=== PATIENT | male | born 1995 | race African-American/Black ===

== ENCOUNTER 2017-07-12 17:47 | Emergency (ER) | payer SELFPAY ==
[~2017-07-12] VITALS: Ht 177.8 cm; Wt 81.6 kg
[~2017-07-12 17:47] MED LIST: NKM
[2017-07-12 17:51] VITALS: BP 139/76
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
[2017-07-12] MEDS ORDERED: IBUPROFEN600 MG ORAL (18:30)
[2017-07-12 18:58] VITALS: BP 139/76
--- NOTE | 2017-07-13 11:13 | Diagnostic Imaging Report ---
Indication: Pain Findings: 3 views of the right elbow were obtained. No acute fractures, malalignment, erosions or periostitis are identified. Bone mineralization is within normal limits. Soft tissues are unremarkable. Impression: Negative examination of the elbow.
--- NOTE | 2017-07-13 11:13 | Diagnostic Imaging Report ---
Indication: Pain Findings: 2 views of the right forearm were obtained. No acute fractures, malalignment, erosions or periostitis are identified. . Soft tissues are unremarkable. Impression: Negative for acute injury
== END 2017-07-12 18:59 | disposition home or self-care (01) ==
LOC: EDBD 17:47 → EMR 18:51
DX: S50.311A Abrasion of right elbow, initial encounter (principal); V09.1XXA Pedestrian injured in unspecified nontraffic accident, initial encounter; Y92.481 Parking lot as the place of occurrence of the external cause
CPT/HCPCS: 99284

== ENCOUNTER 2019-08-12 00:18 | Emergency (ER) | payer SELFPAY ==
[~2019-08-12] VITALS: Ht 177.8 cm; Wt 74.8 kg
[~2019-08-12 00:18] MED LIST changes: +IBUPROFEN600 MG ORAL
[2019-08-12 01:13] LABS: EOSINOPHILS % (AUTO) 6.1 % (0.0-3.0); HEMATOCRIT 50.7 % (42.0-52.0); HEMOGLOBIN 17.2 G/DL (14.2-18.0); LYMPHOCYTES % (AUTO) 32.5 % (20.0-45.0); MEAN CORPUSCULAR VOLUME 84 FL (80-99); MONOCYTES % (AUTO) 6.4 % (1.0-10.0); PLATELET COUNT 330 K/UL (150-450); RED BLOOD COUNT 6.02 M/UL (4.70-6.10); RED CELL DISTRIBUTION WIDTH 11.8 % (11.6-14.8); WHITE BLOOD COUNT 7.7 K/UL (4.8-10.8)
[2019-08-12 01:14] LABS: APPEARANCE,URINE CLEAR; BILIRUBIN, URINE NEGATIVE (NEGATIVE); GLUCOSE, URINE (UA) NEGATIVE (NEGATIVE); KETONES,URINE NEGATIVE (NEGATIVE); LEUKOCYTE ESTERASE ,URINE 1+ (NEGATIVE); NITRITE,URINE POSITIVE (NEGATIVE); PH,URINE 5 (4.5-8.0); PROTEIN,URINE NEGATIVE (NEGATIVE); UROBILINOGEN,URINE NORMAL MG/DL (0.0-1.0)
[2019-08-12] MEDS ORDERED: Lidocaine 2% Visc 15ml soln ORAL ONE (01:15)
[2019-08-12] MEDS ORDERED: Mylanta II UD 30ml ORAL ONE (01:15)
[2019-08-12 01:18] LABS: ANION GAP 7 mmol/L (5-15); BLOOD UREA NITROGEN 12 mg/dL (7-18); CALCIUM 9.1 MG/DL (8.5-10.1); CARBON DIOXIDE 30 MMOL/L (21-32); CHLORIDE 105 MMOL/L (98-107); CREATININE 0.9 MG/DL (0.55-1.30); POTASSIUM 3.8 MMOL/L (3.5-5.1); SODIUM 142 MMOL/L (136-145)
[2019-08-12 01:19] LABS: COLOR,URINE YELLOW
[2019-08-12 01:24] LABS: ALANINE AMINOTRANSFERASE 42 U/L (12-78); ALBUMIN 4.2 G/DL (3.4-5.0); ALBUMIN/GLOBULIN RATIO 1.1 (1.0-2.7); ALKALINE PHOSPHATASE 77 U/L (46-116); ASPARTATE AMINO TRANSFERASE 22 U/L (15-37); BILIRUBIN,TOTAL 0.3 MG/DL (0.2-1.0)
[2019-08-12 01:26] VITALS: BP 142/82
--- NOTE | 2019-08-12 01:27 | Emergency Room Report ---
History of Present Illness General Chief Complaint: Abdominal Pain Source: Patient Present Illness HPI 23-year-old male who presents to emergency room for epigastric abdominal pain and bloating sensation, new onset 5 days ago. Patient has been using over-the- counter Tums and liquid Maalox with no improvement. Patient has no known abdominal surgeries, no vomiting. Noted some mild nausea and loose stools yesterday. Patient has no recent travel. Patient denies any recent large amounts of fatty food eaten. Allergies: Coded Allergies: No Known Allergies (Unverified , 07/12/17) Patient History Past Medical History: none Past Surgical History: none Nursing Documentation-[facility] Past Medical History: No Stated History Review of Systems Constitutional: Denies: chills, fever Respiratory: Denies: cough, shortness of breath Cardiovascular: Denies: chest pain, palpitations Gastrointestinal: Reports: abdominal pain, diarrhea, nausea; Denies: vomiting Genitourinary: Denies: hematuria, pain Musculoskeletal: Denies: joint swelling Skin: Denies: rash, lesions Neurological: Denies: headache, dizziness Physical Exam Vital Signs Date Time Temp Pulse Resp B/P (MAP) Pulse Ox O2 Delivery O2 Flow Rate FiO2 08/12/19 00:31 98.2 75 18 142/82 (102) 96 Room Air Sp02 EP Interpretation: reviewed General Appearance: well appearing, no apparent distress, non-toxic Head: normocephalic, atraumatic Eyes: bilateral eye normal inspection ENT: hearing grossly normal, EOM grossly intact, moist mucus membranes Neck: supple Respiratory: lungs clear, normal breath sounds, no respiratory distress, speaking full sentences Cardiovascular #1: regular rate, rhythm, normal capillary refill Cardiovascular #2: 2+ radial (R), 2+ radial (L) Gastrointestinal: soft, no mass, non-distended, no guarding, no hernia, no rebound, tenderness - Epigastric Rectal: deferred Musculoskeletal: moves extm spontaneously, no lower extremity edema Neurologic: grossly normal Psychiatric: mood/affect normal Skin: warm/dry, normal turgor Medical Decision Making Diagnostic Impression: Primary Impression: UTI (urinary tract infection) Additional Impression: Abdominal pain ER Course 23-year-old male who presents to emergency room for epigastric abdominal pain and bloating sensation, new onset 5 days ago. Patient has been using over-the- counter Tums and liquid Maalox with no improvement. Patient has no known abdominal surgeries, no vomiting. Noted some mild nausea and loose stools yesterday. Patient has no recent travel. Patient denies any recent large amounts of fatty food eaten. Mild epigastric tenderness on exam Differential includes gastroenteritis, gastritis, urinary tract infection, pancreatitis, liver dysfunction, pyelonephritis, kidney stone, ED course in order to have positive urinary tract infection will prescribe antibiotics. Patient recommended to have close follow-up with primary care doctor Laboratory Tests Test 08/12/19 00:40 White Blood Count 7.7 K/UL (4.8-10.8) Red Blood Count 6.02 M/UL (4.70-6.10) Hemoglobin 17.2 G/DL (14.2-18.0) Hematocrit 50.7 % (42.0-52.0) Mean Corpuscular Volume 84 FL (80-99) Mean Corpuscular Hemoglobin 28.6 PG (27.0-31.0) Mean Corpuscular Hemoglobin Concent 34.0 G/DL (32.0-36.0) Red Cell Distribution Width 11.8 % (11.6-14.8) Platelet Count 330 K/UL (150-450) Mean Platelet Volume 7.5 FL (6.5-10.1) Neutrophils (%) (Auto) 54.0 % (45.0-75.0) Lymphocytes (%) (Auto) 32.5 % (20.0-45.0) Monocytes (%) (Auto) 6.4 % (1.0-10.0) Eosinophils (%) (Auto) 6.1 % (0.0-3.0) H Basophils (%) (Auto) 1.0 % (0.0-2.0) Urine Color Yellow Urine Appearance Clear Urine pH 5 (4.5-8.0) Urine Specific [place] 1.030 (1.005-1.035) Urine Protein Negative (NEGATIVE) Urine Glucose (UA) Negative (NEGATIVE) Urine Ketones Negative (NEGATIVE) Urine Blood 1+ (NEGATIVE) H Urine Nitrite Positive (NEGATIVE) H Urine Bilirubin Negative (NEGATIVE) Urine Urobilinogen Normal MG/DL (0.0-1.0) Urine Leukocyte Esterase 1+ (NEGATIVE) H Urine RBC 2-4 /HPF (0 - 0) H Urine WBC 10-15 /HPF (0 - 0) H Urine Squamous Epithelial Cells Occasional /LPF Urine Calcium Oxalate Crystals Few /LPF (NONE) Urine Bacteria Moderate /HPF (NONE) H Sodium Level 142 MMOL/L (136-145) Potassium Level 3.8 MMOL/L (3.5-5.1) Chloride Level 105 MMOL/L (98-107) Carbon Dioxide Level 30 MMOL/L (21-32) Anion Gap 7 mmol/L (5-15) Blood Urea Nitrogen 12 mg/dL (7-18) Creatinine 0.9 MG/DL (0.55-1.30) Estimate Glomerular Filtration Rate > 60 mL/min (>60) Glucose Level 105 MG/DL (74-106) Calcium Level 9.1 MG/DL (8.5-10.1) Total Bilirubin 0.3 MG/DL (0.2-1.0) Aspartate Amino Transferase (AST) 22 U/L (15-37) Alanine Aminotransferase (ALT) 42 U/L (12-78) Alkaline Phosphatase 77 U/L (46-116) Total Protein 8.1 G/DL (6.4-8.2) Albumin 4.2 G/DL (3.4-5.0) Globulin 3.9 g/dL Albumin/Globulin Ratio 1.1 (1.0-2.7) Lipase 125 U/L (73-393) Lab Results Impression Positive urine nitrites and WBCs, leukocytes esterase Last Vital Signs Date Time Temp Pulse Resp B/P (MAP) Pulse Ox O2 Delivery O2 Flow Rate FiO2 08/12/19 00:31 98.2 75 18 142/82 (102) 96 Room Air Disposition: HOME, SELF-CARE Condition: Stable Scripts Ondansetron* (ZOFRAN*) 4 Mg Tablet 4 MG ORAL Q6H PRN for Nausea & Vomiting for 7 Days, #10 TAB Prov: Toby Monson M.D. 08/12/19 Trimethoprim/Sulfamethoxazole 160/800* (BACTRIM DS TABLET*) 1 Each Tablet 1 TAB ORAL Q12H, #14 TAB 0 Refills Prov: Toby Monson M.D. 08/12/19 Referrals: NOT CHOSEN KATHIE/,REFERRING (PCP) [facility] Patient Instructions: Abdominal Pain, Adult, Urinary Tract Infection Additional Instructions: Please take antibiotics as prescribed for the full course. Follow-up with primary care doctor in 2 to 3 days for reevaluation. Return to emergency room if you develop fever, nausea, vomiting or unable to tolerate medications. Toby Monson M.D. Aug 12, 2019 01:27
[2019-08-12] MEDS ORDERED: ZOFRAN4 M3 ORAL (02:30)
[2019-08-12] MEDS ORDERED: BACTRIM DS TAB1 EAC1 ORAL (02:30)
[2019-08-12 02:33] VITALS: BP 132/71
[2019-08-12 02:36] VITALS: BP 132/71
[2019-08-13] MEDS ORDERED: CARAFATE1 G1 ORAL (05:10)
[2019-08-13] MEDS ORDERED: FAMOTIDINE20 MG ORAL (05:10)
== END 2019-08-12 02:36 | disposition home or self-care (01) ==
LOC: EDBD → EMR 00:35
DX: N39.0 Urinary tract infection, site not specified (principal); R10.13 Epigastric pain
CPT/HCPCS: 36415; 80053; 81003; 83690; 85025; 87086; 96374; 96375; 99284; J2405; S0028

== ENCOUNTER 2019-08-13 01:11 | Emergency (ER) | payer SELFPAY ==
[~2019-08-13] VITALS: Ht 177.8 cm; Wt 74.8 kg
[~2019-08-13 01:11] MED LIST changes: +BACTRIM DS TAB1 EAC1 ORAL; +ZOFRAN4 M3 ORAL
[2019-08-13 01:20] VITALS: BP 149/91
--- NOTE | 2019-08-13 01:22 | NUR ---
ED Nurse Note: patient walked into ED c/o upper abdominal pain, patient was seen here last night for the same reason however returned due to worsening of symptoms, patient describes his pain as a dull and aching pain. rates his pain a 10/10 pain, patient denies any nausea, vomiting, and diarrhea. patient is alert and oriented x4, ambulatory with a steady gait, VSS
[2019-08-13] MEDS ORDERED: Sucralfate 1gm tab ORAL ONE (01:45)
[2019-08-13] MEDS ORDERED: Omnipaque-300 100ml vial INJ PRN (01:45)
[2019-08-13 02:37] LABS: EOSINOPHILS % (AUTO) 5.4 % (0.0-3.0); HEMATOCRIT 49.2 % (42.0-52.0); HEMOGLOBIN 16.8 G/DL (14.2-18.0); LYMPHOCYTES % (AUTO) 29.1 % (20.0-45.0); MEAN CORPUSCULAR VOLUME 84 FL (80-99); MONOCYTES % (AUTO) 6.1 % (1.0-10.0); NEUTROPHILS % (AUTO) 58.4 % (45.0-75.0); PLATELET COUNT 317 K/UL (150-450); RED BLOOD COUNT 5.89 M/UL (4.70-6.10); RED CELL DISTRIBUTION WIDTH 11.8 % (11.6-14.8); WHITE BLOOD COUNT 9.2 K/UL (4.8-10.8)
--- NOTE | 2019-08-13 02:51 | Emergency Room Report ---
History of Present Illness General Chief Complaint: Abdominal Pain Source: Patient Present Illness HPI 24-year-old male presenting with epigastric abdominal pain now radiating diffusely over his entire abdomen. Of note patient was seen yesterday with similar complaints and found to have a urinary tract infection was prescribed antibiotics. Patient started his antibiotics recommended. She states he has no vomiting and no diarrhea, but he states nausea. Epigastric pain is sharp in nature knifelike, 10 out of 10, constant, and unchanged with medications prescribed. Of note patient has no prior abdominal surgeries. Allergies: Coded Allergies: No Known Allergies (Unverified , 07/12/17) Patient History Past Medical History: none Past Surgical History: none Nursing Documentation-[facility] Past Medical History: No Stated History Review of Systems Constitutional: Denies: chills, fever Respiratory: Denies: cough, shortness of breath Cardiovascular: Denies: chest pain, palpitations Gastrointestinal: Reports: abdominal pain, nausea; Denies: diarrhea, vomiting Genitourinary: Denies: hematuria, pain Musculoskeletal: Denies: joint swelling Skin: Denies: rash, lesions Neurological: Denies: headache, dizziness Physical Exam Vital Signs Date Time Temp Pulse Resp B/P (MAP) Pulse Ox O2 Delivery O2 Flow Rate FiO2 08/13/19 01:15 97.7 72 18 149/91 (110) 95 Room Air Sp02 EP Interpretation: reviewed General Appearance: well appearing, no apparent distress, non-toxic Head: normocephalic, atraumatic Eyes: bilateral eye normal inspection ENT: hearing grossly normal, EOM grossly intact, moist mucus membranes Neck: supple Respiratory: lungs clear, normal breath sounds, no respiratory distress, speaking full sentences Cardiovascular #1: regular rate, rhythm, normal capillary refill Cardiovascular #2: 2+ radial (R), 2+ radial (L) Gastrointestinal: soft, no mass, no organomegaly, no peritonitis, no bruit, non -distended, no guarding, no hernia, no rebound, tenderness - Epigastric Rectal: deferred Musculoskeletal: moves extm spontaneously, no lower extremity edema Neurologic: grossly normal Psychiatric: mood/affect normal Skin: warm/dry, normal turgor Medical Decision Making Diagnostic Impression: Primary Impression: Epigastric abdominal pain ER Course 24-year-old male presenting with epigastric abdominal pain, similar symptoms yesterday found to have urinary tract infection. Patient compliant with medications. Found to have epigastric tenderness on exam with no rebound or guarding. Differential includes gastric ulcer, esophageal rupture, peritonitis, intraperitoneal injury, abscess, appendicitis with referred pain, kidney stones , diverticulosis gallbladder pain, choledocholithiasis CT/MRI/US Diagnostic Results CT/MRI/US Diagnostic Results : Impression Patient : TIM FERGUSON Referring Physician: Toby Monson M.D. ID Number: [id number] Service Date: 08/13/19 : 09/07/1994 Report Date: 08/13/19 Gender: M Accession No.: [id number] Location: [facility] Procedure: CT Abdomen Pelvis w/Contrast EXAM: CT Abdomen and Pelvis With Intravenous Contrast CLINICAL HISTORY: ABD PAIN TECHNIQUE: Axial computed tomography images of the abdomen and pelvis with intravenous contrast. CTDI is 16.9 mGy and DLP is 997.1 mGy-cm. One or more of the following dose reduction techniques were used: automated exposure control, adjustment of the mA and/or kV according to patient size, use of iterative reconstruction technique. COMPARISON: No relevant prior studies available. FINDINGS: Lung bases: Unremarkable. No mass. No consolidation. Mediastinum: Small hiatal hernia. ABDOMEN: Liver: Unremarkable. No mass. Gallbladder and bile ducts: Unremarkable. No calcified stones. No ductal dilation. Pancreas: Unremarkable. No mass. No ductal dilation. Spleen: Unremarkable. No splenomegaly. Adrenals: Unremarkable. No mass. Kidneys and ureters: Unremarkable. No solid mass. No hydronephrosis. Stomach and bowel: Unremarkable. No obstruction. No mucosal thickening. PELVIS: Appendix: No findings to suggest acute appendicitis. Bladder: Unremarkable. No mass. Reproductive: Unremarkable as visualized. ABDOMEN and PELVIS: Intraperitoneal space: Unremarkable. No free air. No significant fluid collection. Bones/joints: No acute fracture. No dislocation. Soft tissues: Unremarkable. Vasculature: Unremarkable. No abdominal aortic aneurysm. Lymph nodes: Unremarkable. No enlarged lymph nodes. IMPRESSION: No acute findings in the abdomen or pelvis. Dictated By: Teresa Pandya M.D. Electronically Signed By: Teresa Pandya M.D. Signed Date/Time 08/13/19 0453 CC: Toby Monson M.D. Reevaluation Time: 05:09 Last Vital Signs Date Time Temp Pulse Resp B/P (MAP) Pulse Ox O2 Delivery O2 Flow Rate FiO2 08/13/19 01:20 72 18 Room Air 08/13/19 01:20 97.7 149/91 95 Status: improved Reevaluation Impression CT performed noted to be within normal limits. Patient's epigastric abdominal pain likely secondary to gastritis versus gastric ulcer. Patient recommended to follow-up with primary care doctor soon as possible. Also recommended to see GI specialist as soon as possible. Patient given warning signs and when to return to emergency room. Disposition: HOME, SELF-CARE Condition: Stable Scripts Famotidine* (Pepcid 20mg tablet*) 20 Mg Tablet 20 MG ORAL TWICE A DAY, #60 TAB 0 Refills Prov: Toby Monson M.D. 08/13/19 Sucralfate* (CARAFATE*) 1 Gm Tablet 1 GM ORAL FOUR TIMES A DAY for 10 Days, #40 TAB Prov: Toby Monson M.D. 08/13/19 Referrals: NOT CHOSEN [facility]/,REFERRING (PCP) [facility] Patient Instructions: Abdominal Pain, Adult Additional Instructions: Please take medications as prescribed and return to emergency room if symptoms not improving. Toby Monson M.D. Aug 13, 2019 02:51
[2019-08-13 02:57] LABS: ANION GAP 8 mmol/L (5-15); BLOOD UREA NITROGEN 11 mg/dL (7-18); CALCIUM 8.4 MG/DL (8.5-10.1); CARBON DIOXIDE 30 MMOL/L (21-32); CHLORIDE 104 MMOL/L (98-107); CREATININE 1.1 MG/DL (0.55-1.30); POTASSIUM 3.5 MMOL/L (3.5-5.1); SODIUM 141 MMOL/L (136-145)
[2019-08-13 03:01] LABS: ALANINE AMINOTRANSFERASE 34 U/L (12-78); ALBUMIN 3.7 G/DL (3.4-5.0); ALBUMIN/GLOBULIN RATIO 1.1 (1.0-2.7); ALKALINE PHOSPHATASE 71 U/L (46-116); ASPARTATE AMINO TRANSFERASE 15 U/L (15-37); BILIRUBIN,TOTAL 0.3 MG/DL (0.2-1.0)
--- NOTE | 2019-08-13 03:45 | NUR ---
ED Nurse Note: Pt resting in bed with eyes closed, non-labored breathing, no signs of distress. Pt awaiting CT scan. Will continue to monitor
--- NOTE | 2019-08-13 04:53 | Diagnostic Imaging Report ---
EXAM: CT Abdomen and Pelvis With Intravenous Contrast CLINICAL HISTORY: ABD PAIN TECHNIQUE: Axial computed tomography images of the abdomen and pelvis with intravenous contrast. CTDI is 16.9 mGy and DLP is 997.1 mGy-cm. One or more of the following dose reduction techniques were used: automated exposure control, adjustment of the mA and/or kV according to patient size, use of iterative reconstruction technique. COMPARISON: No relevant prior studies available. FINDINGS: Lung bases: Unremarkable. No mass. No consolidation. Mediastinum: Small hiatal hernia. ABDOMEN: Liver: Unremarkable. No mass. Gallbladder and bile ducts: Unremarkable. No calcified stones. No ductal dilation. Pancreas: Unremarkable. No mass. No ductal dilation. Spleen: Unremarkable. No splenomegaly. Adrenals: Unremarkable. No mass. Kidneys and ureters: Unremarkable. No solid mass. No hydronephrosis. Stomach and bowel: Unremarkable. No obstruction. No mucosal thickening. PELVIS: Appendix: No findings to suggest acute appendicitis. Bladder: Unremarkable. No mass. Reproductive: Unremarkable as visualized. ABDOMEN and PELVIS: Intraperitoneal space: Unremarkable. No free air. No significant fluid collection. Bones/joints: No acute fracture. No dislocation. Soft tissues: Unremarkable. Vasculature: Unremarkable. No abdominal aortic aneurysm. Lymph nodes: Unremarkable. No enlarged lymph nodes. IMPRESSION: No acute findings in the abdomen or pelvis.
[2019-08-13] MEDS ORDERED: CARAFATE1 G1 ORAL (05:10)
[2019-08-13] MEDS ORDERED: FAMOTIDINE20 MG ORAL (05:10)
[2019-08-13 05:30] VITALS: BP 149/91
--- NOTE | 2019-08-13 05:30 | NUR ---
ER DISCHARGE NOTE: Patient is cleared to be discharged per ERMD, pt is aox4, on room air, with stable vital signs. pt was given dc and prescription instructions, pt was able to verbalize understanding, pt id band and iv site removed without complications. pt is able to ambulate with steady gait. pt took all belongings.
== END 2019-08-13 05:30 | disposition home or self-care (01) ==
LOC: EDBD 01:11 → EMR 01:40
DX: R10.9 Unspecified abdominal pain (principal)
CPT/HCPCS: 36415; 74177; 80053; 83690; 85025; 96374; 96375; 99284; J2405; Q9967; S0028

== ENCOUNTER 2020-02-26 20:00 | Emergency (ER) | payer OTHER ==
[~2020-02-26] VITALS: Ht 177.8 cm; Wt 74.8 kg
[~2020-02-26 20:00] MED LIST changes: +CARAFATE1 G1 ORAL; +CEPHALEXIN500 MG ORAL; +FAMOTIDINE20 MG ORAL; +ZITHROMAX250 MG ORAL
[2020-02-26 20:15] VITALS: BP 134/82
--- NOTE | 2020-02-26 20:15 | NUR ---
ED Nurse Note: Pt walked into ED for c/o throat pain and headache x1 day. Pt reports pain with swallowing and difficulty eating. Pt is aaox4, breathing is normal and unlabored. No cough or SOB.
--- NOTE | 2020-02-26 20:25 | Emergency Room Report ---
History of Present Illness General Chief Complaint: Sore Throat Source: Patient Present Illness HPI Patient presents with complaints of sore throat Reports that he smoked heavier than usual yesterday and feels discomfort to that region Pain is worse with swallowing Denies any fevers denies any chest pain denies any vomiting Patient reports that he also had some personal experiences recently with in the family and felt that he was somewhat dehydrated Allergies: Coded Allergies: No Known Allergies (Unverified , 05/18/19) COVID-19 Screening Contact w/high risk pt: No Recent Travel to affected area: No Experienced COVID-19 symptoms?: No COVID-19 Testing performed APARTMENT LEASING AGENT: No Patient History Past Medical History: see triage record Reviewed Nursing Documentation: PMH: Agreed; PSxH: Agreed Nursing Documentation-PMH Past Medical History: No Stated History Review of Systems All Other Systems: negative except mentioned in HPI Physical Exam Vital Signs Date Time Temp Pulse Resp B/P (MAP) Pulse Ox O2 Delivery O2 Flow Rate FiO2 02/26/20 20:02 99.0 93 16 134/82 (99) 97 Room Air Sp02 EP Interpretation: reviewed, normal General Appearance: well appearing, no apparent distress Head: normocephalic, atraumatic Eyes: bilateral eye PERRL, bilateral eye EOMI ENT: hearing grossly normal, TMs + canals normal, uvula midline, pharyngeal erythema Neck: full range of motion, supple, no meningismus, no bony tend Respiratory: lungs clear, normal breath sounds, no rhonchi, no respiratory distress, no retraction, no accessory muscle use Cardiovascular #1: normal peripheral pulses, regular rate, rhythm, no edema, no gallop, no JVD, no murmur Gastrointestinal: normal bowel sounds, non tender, soft, no mass, no organomegaly, non-distended, no guarding, no hernia, no pulsatile mass, no rebound Musculoskeletal: normal inspection Neurologic: motor strength/tone normal, overedge sewer III-XII nml as tested, oriented x3 , sensory intact, responsive Psychiatric: mood/affect normal Skin: no rash Lymphatic: normal inspection, no adenopathy Medical Decision Making Diagnostic Impression: Primary Impression: Pharyngitis ER Course Multiple differentials including but not limited to pharyngitis viral versus bacterial, retropharyngeal abscess peritonsillar abscess entertained, patient's voice is normal There is some signs of pharyngeal erythema and likely pharyngitis Patient was given injection of Toradol and requires close outpatient follow-up Last Vital Signs Date Time Temp Pulse Resp B/P (MAP) Pulse Ox O2 Delivery O2 Flow Rate FiO2 02/26/20 20:15 99.0 93 16 134/82 97 Room Air Status: improved Disposition: HOME, SELF-CARE Condition: Improved Referrals: [facility],REFERR[facility] (PCP) Additional Instructions: Patient is provided with the discharge instructions notified to follow up with primary doctor in the next 2-3 days otherwise return to the er with any worsening symptoms. Please note that this report is being documented using [employer] technology. This can lead to erroneous entry secondary to incorrect interpretation by the dictating instrument. Nurys Smith DO Feb 26, 2020 20:25
[2020-02-26] MEDS ORDERED: AMOXICILLIN500 MG ORAL (20:26)
[2020-02-26] MEDS ORDERED: Ketorolac 60mg Inj IM ONE (20:30)
[2020-02-26 20:40] VITALS: BP 128/80
--- NOTE | 2020-02-26 20:40 | NUR ---
ER DISCHARGE NOTE: Patient is cleared to be discharged per ERMD, pt is aox4, on room air, with stable vital signs. pt was given dc and prescription instructions, pt was able to verbalize understanding, pt id band removed. pt is able to ambulate with steady gait. pt took all belongings.
[2020-02-27] MEDS ORDERED: IBUPROFEN600 M1 ORAL (22:19)
== END 2020-02-26 20:40 | disposition home or self-care (01) ==
LOC: MERGE 20:22 → EMR 20:22
DX: J02.9 Acute pharyngitis, unspecified (principal)
CPT/HCPCS: 96372; Z7502; 99283

== ENCOUNTER 2020-02-27 21:11 | Emergency (ER) | payer OTHER ==
[~2020-02-27] VITALS: Ht 177.8 cm; Wt 74.8 kg
[~2020-02-27 21:11] MED LIST changes: +AMOXICILLIN500 MG ORAL
[2020-02-27] MEDS ORDERED: IBUPROFEN600 M1 ORAL (22:19)
[2020-02-27 22:30] VITALS: BP 133/81
[2020-02-27 22:40] VITALS: BP 128/83
--- NOTE | 2020-02-28 00:32 | Emergency Room Report ---
History of Present Illness General Chief Complaint: General Complaint Source: Patient Present Illness HPI 24-year-old male presents complaining of throat pain. Started 2 days ago. Throbbing, 9 out of 10, nonradiating. Unable to swallow food or liquid. Denies fevers or chills. Denies cough. Was seen in ED yesterday. Was prescribed antibiotics. States he is taking the medications but without significant symptom relief. Denies sick contacts or recent travel. No other aggravating relieving factors. Denies any other associated symptoms Allergies: Coded Allergies: No Known Allergies (Unverified , 05/18/19) COVID-19 Screening Contact w/high risk pt: No Recent Travel to affected area: No Experienced COVID-19 symptoms?: No COVID-19 Testing performed SENIOR SOLUTIONS ENGINEER: No Patient History Past Medical History: none Past Surgical History: none Pertinent Family History: none Social History: Denies: smoking, alcohol use, drug use Immunizations: UTD Reviewed Nursing Documentation: PMH: Agreed; PSxH: Agreed Nursing Documentation-PMH Past Medical History: No Stated History Review of Systems All Other Systems: negative except mentioned in HPI Physical Exam Vital Signs Date Time Temp Pulse Resp B/P (MAP) Pulse Ox O2 Delivery O2 Flow Rate FiO2 02/27/20 21:24 100.0 93 18 128/83 (98) 99 Room Air Sp02 EP Interpretation: reviewed, normal General Appearance: no apparent distress, alert, GCS 15, non-toxic Head: normocephalic, atraumatic Eyes: bilateral eye normal inspection, bilateral eye PERRL ENT: hearing grossly normal, normal pharynx, no angioedema, normal voice, uvula midline, pharyngeal erythema, tonsillar exudate Neck: full range of motion, supple, no meningismus, supple/symm/no masses Respiratory: normal inspection Cardiovascular #1: normal inspection Gastrointestinal: normal inspection Rectal: deferred Genitourinary: no CVA tenderness Musculoskeletal: normal inspection Neurologic: alert, motor strength/tone normal, oriented x3, sensory intact, responsive, speech normal Psychiatric: normal inspection Skin: no rash Lymphatic: normal inspection Medical Decision Making Diagnostic Impression: Primary Impression: Pharyngitis Qualified Codes: J02.9 - Acute pharyngitis, unspecified ER Course Hospital Course 24-year-old male presents to ED complaining of sore throat Differential diagnoses include: URI, pharyngitis, otitis media Clinical course Patient placed on stretcher. After initial history, physical exam reveals a young male in no acute distress. Bilateral TM unremarkable. There is pharyngeal erythema w/ tonsillar exudates. I discussed findings with patient. Patient currently already on antibiotics. Patient would benefit from Decadron injection for the inflammation. Patient agreed. Safe for discharge for close outpatient follow-up. Patient encouraged to complete antibiotics as prescribed. I will provide referrals Diagnosis - pharyngitis Stable and discharged home with prescriptions for Motrin. Continue antibiotics as prescribed. Instructed to followup with PMD. return to ED if symptoms recur or worsen Last Vital Signs Date Time Temp Pulse Resp B/P (MAP) Pulse Ox O2 Delivery O2 Flow Rate FiO2 02/27/20 22:40 100.0 18 128/83 99 Room Air 02/27/20 22:30 83 Status: improved Disposition: HOME, SELF-CARE Condition: Stable Scripts Ibuprofen* (MOTRIN*) 600 Mg Tablet 600 MG ORAL Q8H PRN for FOR PAIN, #30 TAB 0 Refills Prov: Erlin Fenton MD 02/27/20 Referrals: [facility],REFERRING (PCP) [facility] Patient Instructions: Pharyngitis, [id number] Erlin Fenton MD Feb 28, 2020 00:32
== END 2020-02-27 22:40 | disposition home or self-care (01) ==
LOC: MERGE 21:40 → EMR 21:40
DX: J02.9 Acute pharyngitis, unspecified (principal)
CPT/HCPCS: 96372; J1100; Z7502; 99283

== ENCOUNTER 2020-09-17 11:58 | Emergency (ER) | payer MEDICAID, OTHER ==
[~2020-09-17] VITALS: Ht 177.8 cm; Wt 75.7 kg
[~2020-09-17 11:58] MED LIST changes: +IBUPROFEN600 M1 ORAL
[2020-09-17 12:25] VITALS: BP 129/62
--- NOTE | 2020-09-17 12:25 | NUR ---
ED Nurse Note: Patient walked in to Er from home c/o redness, tearing and crusts on the left eyelid x 2 days
[2020-09-17] MEDS ORDERED: OFLOXACIN10 ML OP (12:31)
--- NOTE | 2020-09-17 12:31 | Emergency Room Report ---
History of Present Illness General Chief Complaint: Eye Problems Source: Patient Present Illness HPI 25-year-old male with no signal past medical history here complaining of left thigh pain that started spinning upon waking up. Patient reports that he has turned the corner of his eyes and he pressed on it he noticed more pain inside the eye and yellow discharge. Denies photophobia, blurred vision, cough and congestion. Denies fever and chills. Denies any trauma to the eyes. No signs of global trauma noted, no entrapment noted. Allergies: Coded Allergies: No Known Allergies (Unverified , 07/12/17) COVID-19 Screening Contact w/high risk pt: No Experienced COVID-19 symptoms?: No COVID-19 Testing performed SR. STRATEGIC SOURCING MANAGER: Yes - 09/01 COVID-19 Screening: Negative COVID-19 COVID-19 Testing Source: Blood Patient History Past Medical History: see triage record Past Surgical History: none Pertinent Family History: none Immunizations: UTD Reviewed Nursing Documentation: PMH: Agreed; PSxH: Agreed Nursing Documentation-PMH Past Medical History: No Stated History Review of Systems All Other Systems: negative except mentioned in HPI Physical Exam Vital Signs Date Time Temp Pulse Resp B/P (MAP) Pulse Ox O2 Delivery O2 Flow Rate FiO2 09/17/20 12:15 98.6 102 16 129/62 (84) 96 Room Air Sp02 EP Interpretation: reviewed, normal General Appearance: no apparent distress, alert, GCS 15, non-toxic Head: normocephalic, atraumatic Eyes: left eye other - Conjunctive are injected ENT: hearing grossly normal, normal pharynx, no angioedema, normal voice Neck: full range of motion, supple/symm/no masses Respiratory: chest non-tender, lungs clear, normal breath sounds, speaking full sentences Cardiovascular #1: regular rate, rhythm, no edema Gastrointestinal: non tender Musculoskeletal: back normal Neurologic: alert, motor strength/tone normal, oriented x3, sensory intact, responsive, speech normal Psychiatric: judgement/insight normal Skin: no rash Lymphatic: no adenopathy Medical Decision Making PA Attestation All my diagnosis and treatment plans were reviewed ad discussed with my supervising physician Dr. Fenton Diagnostic Impression: Primary Impression: Bacterial conjunctivitis ER Course 25-year-old male with no signal past medical history here complaining of left thigh pain that started spinning upon waking up. Patient reports that he has turned the corner of his eyes and he pressed on it he noticed more pain inside the eye and yellow discharge. Denies photophobia, blurred vision, cough and congestion. Denies fever and chills. Denies any trauma to the eyes. No signs of global trauma noted, no entrapment noted. Ddx considered but are not limited to: bacterial conjunctivitis, allergic conjunctivitis, viral conjunctivitis, periorbital cellulitis, global trauma Vital signs: are WNL, pt. is afebrile H&PE are most consistent with: Bacterial conjunctivitis ORDERS: Ofloxacin ophthalmic ED INTERVENTIONS: None required at this time. DISCHARGE: At this time pt. is stable for d/c to home. Will provide printed patient care instructions, and any necessary prescriptions. Care plan and follow up instructions have been discussed with the patient prior to discharge. Follo w-up with print buyer, take medication as directed, if worsening symptoms return to the emergency room Last Vital Signs Date Time Temp Pulse Resp B/P (MAP) Pulse Ox O2 Delivery O2 Flow Rate FiO2 09/17/20 12:15 98.6 102 16 129/62 (84) 96 Room Air Disposition: HOME, SELF-CARE Condition: Stable Scripts Ofloxacin (Ofloxacin) 5 Ml Drops 2 DROP OP Q6HR for 7 Days, #5 ML Prov: Tyree Dodge 09/17/20 Patient Instructions: Bacterial Conjunctivitis, [id number] Tyree Dodge Sep 17, 2020 12:30
[2020-09-17 12:34] VITALS: BP 129/62
--- NOTE | 2020-09-17 12:34 | NUR ---
ED Nurse Note: Pt cleared by health care Provider for discharge. DC instructions/prescription was given and explained to pt and verbalized understanding of teachings. All medical deviecs such as ID band removed. Pt is AAO x4, ambulatory and left with all personal belongings.
== END 2020-09-17 12:45 | disposition home or self-care (01) ==
LOC: EMR 12:30
DX: H10.89 Other conjunctivitis (principal)
CPT/HCPCS: 99282

== ENCOUNTER 2020-09-20 14:41 | Emergency (ER) | payer MEDICAID ==
[~2020-09-20] VITALS: Ht 177.8 cm; Wt 76.2 kg
[~2020-09-20 14:41] MED LIST changes: +OFLOXACIN10 ML OP
--- NOTE | 2020-09-20 15:12 | NUR ---
ED NURSE NOTE: pt presents to ED with L eye antonio, states that he was seen and treated here on wednesday, has been taking meds as prescribed, eye has not improved. pt reports that the pain is worse. there is swelling noted to L eye
[2020-09-20 15:13] VITALS: BP 124/87
[2020-09-20] MEDS ORDERED: AUGMENTIN 875-1 EAC1 ORAL (15:20)
[2020-09-20] MEDS ORDERED: PREDNISONE20 MG ORAL (15:20)
--- NOTE | 2020-09-20 15:20 | Emergency Room Report ---
History of Present Illness General Chief Complaint: Eye Problems Source: Patient Present Illness HPI 25-year-old male with no signal past medical history who was seen in [place] ER few days ago for bacterial conjunctivitis here complaining of swelling and pain around the same time reports that it is very pruritic that he keeps rubbing it. Patient is asking for either an injection of antibiotics or having" the pus inside my eye drained out." Patient does not appear to be compliant with medication. Patient does not appear to be compliant with instructions. Has not yet follow-up with director of clinical education. Denies any fever and chills, blurred vision, cough and congestion. Denies any trauma to the eye. Patient deferred any eye examination in terms of using Wood lamp and fluorescein strips. Reports that he is very sensitive to light at this time. Denies any fever chills or neck stiffness. Allergies: Coded Allergies: No Known Allergies (Unverified , 07/12/17) COVID-19 Screening Contact w/high risk pt: No Experienced COVID-19 symptoms?: No COVID-19 Testing performed FELT DYEING MACHINE TENDER: No Patient History Past Medical History: see triage record Past Surgical History: none Pertinent Family History: none Immunizations: UTD Reviewed Nursing Documentation: PMH: Agreed; PSxH: Agreed Nursing Documentation-PMH Past Medical History: No Stated History Review of Systems All Other Systems: negative except mentioned in HPI Physical Exam Vital Signs Date Time Temp Pulse Resp B/P (MAP) Pulse Ox O2 Delivery O2 Flow Rate FiO2 09/20/20 14:52 98.6 87 19 124/87 (99) 98 Room Air Sp02 EP Interpretation: reviewed, normal General Appearance: no apparent distress, alert, GCS 15, non-toxic Head: normocephalic, atraumatic Eyes: left eye other - Left conjunctival injected and periorbital cellulitis n oted ENT: hearing grossly normal, normal pharynx, no angioedema, normal voice Neck: full range of motion, supple/symm/no masses Respiratory: chest non-tender, lungs clear, normal breath sounds, speaking full sentences Cardiovascular #1: regular rate, rhythm, no edema Cardiovascular #2: 2+ carotid (R), 2+ carotid (L), 2+ radial (R), 2+ radial (L), 2+ dorsalis pedis (R), 2+ dorsalis pedis (L) Musculoskeletal: normal inspection Neurologic: alert, motor strength/tone normal, oriented x3, sensory intact, responsive, speech normal Psychiatric: judgement/insight normal, memory normal, mood/affect normal, no suicidal/homicidal ideation Skin: no rash Lymphatic: no adenopathy Medical Decision Making ARIELLE Attestation All my diagnosis and treatment plans were reviewed ad discussed with my supervising physician Dr. Teresa Diagnostic Impression: Primary Impression: Periorbital cellulitis ER Course 25-year-old male with no signal past medical history who was seen in [place] ER few days ago for bacterial conjunctivitis here complaining of swelling and pain around the same time reports that it is very pruritic that he keeps rubbing it. Patient is asking for either an injection of antibiotics or having" the pus i nside my eye drained out." Patient does not appear to be compliant with medication. Patient does not appear to be compliant with instructions. Has not yet follow-up with director of clinical education. Denies any fever and chills, blurred vision, cough and congestion. Denies any trauma to the eye. Patient deferred any eye examination in terms of using Wood lamp and fluorescein strips. Reports that he is very sensitive to light at this time. Denies any fever chills or neck stiffness. Ddx considered but are not limited to: bacterial conjunctivitis, allergic conjunctivitis, viral conjunctivitis, periorbital cellulitis, global trauma Vital signs: are WNL, pt. is afebrile H&PE are most consistent with: Periorbital cellulitis ORDERS: Augmentin ED INTERVENTIONS: None required at this time. DISCHARGE: At this time pt. is stable for d/c to home. Will provide printed patient care instructions, and any necessary prescriptions. Care plan and follow up instructions have been discussed with the patient prior to discharge. Advised patient to follow-up with director of clinical education in 24 to 48 hours, provided him with some resources. If worsening symptom return to the emergency room. Avoid rubbing the eyes. Last Vital Signs Date Time Temp Pulse Resp B/P (MAP) Pulse Ox O2 Delivery O2 Flow Rate FiO2 09/20/20 15:13 98.6 19 124/87 98 Room Air 09/20/20 14:52 87 Disposition: HOME, SELF-CARE Condition: Stable Scripts Prednisone* (PREDNISONE*) 20 Mg Tablet 40 MG ORAL DAILY for 5 Days, #10 TAB Prov: Tyree Dodge 09/20/20 Amoxicillin/Potassium Clav 875-125* (AUGMENTIN 875-125 TABLET*) 1 Each Tablet 1 TAB ORAL TWICE A DAY for 10 Days, #20 TAB Prov: Tyree Dodge 09/20/20 Patient Instructions: Preseptal Cellulitis, Adult Additional Instructions: Follow-up with director of clinical education, take medication as directed, 5 to follow with director of clinical education next 24 to 48 hours, if worsening symptoms return to the emergency room Tyree Dodge Sep 20, 2020 15:20
[2020-09-20 15:25] VITALS: BP 124/87
--- NOTE | 2020-09-20 15:25 | NUR ---
ER DISCHARGE NOTE: Patient is cleared to be discharged per ERMD, pt is aox4, on room air, with stable vital signs. pt was given dc and prescription instructions, pt was able to verbalize understanding, pt id band removed without complications. pt is able to ambulate with steady gait. pt took all belongings.
== END 2020-09-20 15:25 | disposition home or self-care (01) ==
LOC: EMR 15:00
DX: L03.213 Periorbital cellulitis (principal)
CPT/HCPCS: 99282

== ENCOUNTER 2020-10-13 15:39 | Emergency (ER) | payer MEDICAID ==
[~2020-10-13] VITALS: Ht 180.3 cm; Wt 72.6 kg
[~2020-10-13 15:39] MED LIST changes: +AUGMENTIN 875-1 EAC1 ORAL; +PREDNISONE20 MG ORAL
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
--- NOTE | 2020-10-13 17:04 | Diagnostic Imaging Report ---
EXAM: CT Maxillofacial Without Intravenous Contrast CLINICAL HISTORY: TRAUMA TECHNIQUE: Axial computed tomography images of the face without intravenous contrast. CTDI is 15.30 mGy and DLP is 356.80 mGy-cm. One or more of the following dose reduction techniques were used: automated exposure control, adjustment of the mA and/or kV according to patient size, use of iterative reconstruction technique. COMPARISON: No previous study. FINDINGS: Bones/joints: Visualized calvarium is unremarkable. Zygomatic arches are unremarkable. Lamina papyracea is within normal limits. The maxilla is unremarkable. Mandibular condyles are within normal limits. No acute mandibular fractures. Soft tissues: Soft tissues are within normal limits. Orbits: Orbital rims are intact. Sinuses: Unremarkable. No air-fluid levels. Nasal cavity/septum: Nasal bones are unremarkable. IMPRESSION: No acute facial injury.
[2020-10-13] MEDS ORDERED: IBUPROFEN600 M1 ORAL (17:17)
[2020-10-13] MEDS ORDERED: PREDNISONE20 MG ORAL (17:17)
[2020-10-13] MEDS ORDERED: ZITHROMAX250 MG ORAL (17:17)
--- NOTE | 2020-10-13 17:43 | NUR ---
ER DISCHARGE NOTE: Patient is cleared to be discharged per ERMD, pt is aox4, on room air, with stable vital signs. pt was given dc and prescription instructions, pt was able to verbalize understanding, pt id band removed. pt is able to ambulate with steady gait. pt took all belongings. pt educated regarding inverventions for pain, rest, hydration
[2020-10-13 17:44] VITALS: BP 138/87
== END 2020-10-13 17:45 | disposition home or self-care (01) ==
LOC: EMR 16:02
DX: S00.83XA Contusion of other part of head, initial encounter (principal); X58.XXXA Exposure to other specified factors, initial encounter; Y92.9 Unspecified place or not applicable; J03.90 Acute tonsillitis, unspecified; R51.9 Headache, unspecified
CPT/HCPCS: 70486; Z7502; 99284